=== PATIENT | male | born 1945 | race Caucasian/White ===

== ENCOUNTER 2018-06-02 07:08 | Inpatient (IN) | payer MEDICARE ==
[~2018-06-02] VITALS: Ht 165.1 cm; Wt 70.2 kg
[2018-06-02] VITALS (12 sets, daily range): BP systolic 106–155; BP diastolic 49–87
[~2018-06-02 07:08] MED LIST: ASPI81 PO; ATOR40TA28 PO; FAMO20 PO; LISI-660 PO; METO25 PO; MONT10TA21 PO; SODIUM CHLORIDE 0.9% 1,000 ML IV ONE
[2018-06-02 07:51] LABS: BASOPHILS % (AUTO) 0.9 % (0.0-2.0); HEMATOCRIT 39.9 % (41-53); HEMOGLOBIN 13.9 g/dL (13.5-17.5); LYMPHOCYTES # (AUTO) 2.4 K/uL (1.0-4.8); LYMPHOCYTES % (AUTO) 30.9 % (22.0-44.0); MEAN CORPUSCULAR HGB CONC 34.9 G/dL (31.0-37.0); MEAN CORPUSCULAR VOLUME 92 fL (80-100); MONOCYTES # (AUTO) 0.8 K/uL (0.1-1.0); MONOCYTES % (AUTO) 10.7 % (2.0-9.0); NEUTROPHILS # (AUTO) 4.3 K/uL (1.8-7.7); NEUTROPHILS % (AUTO) 55.5 % (40.0-70.0); PLATELET COUNT (AUTO) 227 K/uL (150-450); RED BLOOD CELL COUNT(AUTO) 4.36 MIL/uL (4.50-5.90); RED CELL DISTRIBUTION WIDTH 13.7 % (11.5-14.5)
[2018-06-02 08:02] LABS: INR 0.9 (0.9-1.1); PROTHROMBIN TIME 9.2 SEC (9.4-11.6)
[2018-06-02 08:03] LABS: ANION GAP 10 mmol/L (8-16); CALCIUM, TOTAL 8.7 mg/dL (8.8-10.5); CARBON DIOXIDE 24 mmol/L (22-29); CHLORIDE 102 mmol/L (98-107); CREATININE 1.15 mg/dL (0.60-1.30); GLOMERULAR FILTR. RATE CALC > 60 mL/min (>60); GLUCOSE,RANDOM 94 mg/dL (70-110); POTASSIUM 4.5 mmol/L (3.5-5.1); SODIUM SERUM 136 mmol/L (136-145); UREA NITROGEN, BLOOD 19 mg/dL (7-18)
[2018-06-02] MEDS ORDERED: LIDOCAINE HCL/PF 1% 30 ML VIAL ONE (08:51)
[2018-06-02] MEDS ORDERED: IOHEXOL 300 MG/ML 150 ML VIAL ONE (08:51)
[2018-06-02] MEDS ORDERED: SODIUM BICARBONATE 50 MEQ/50 ML VIAL ONE (08:51)
[2018-06-02] MEDS ORDERED: HEPARIN SODIUM 1000 UNITS/NS 1,000 ML ONE (08:51)
[2018-06-02] MEDS ORDERED: PHENYLEPHRINE 200 MG/D5%-WATER 250 ML IV ONE (09:30)
[2018-06-02] MEDS ORDERED: LIDOCAINE 1% 30 ML/SOD BICARB 8.4% 4 ML SQ ONE (09:36)
[2018-06-02] MEDS ORDERED: FentaNYL CITRATE-PF 100 MCG/2 ML VIAL ONE (09:36)
[2018-06-02] MEDS ORDERED: HEPARIN SODIUM,PORCINE 1,000 UNITS/ML 10 ML VIAL ONE (09:37)
[2018-06-02] MEDS ORDERED: NITROGLYCERIN 50 MG/D5% WATER 250 ML ONE (09:37)
[2018-06-02] MEDS ORDERED: MIDAZOLAM HCL 2 MG/2 ML VIAL ONE (09:37)
[2018-06-02] MEDS ORDERED: HEPARIN SODIUM 1000 UNITS/NS 500 ML IARTER ONE (09:37)
[2018-06-02] MEDS ORDERED: HEPARIN SODIUM 2,000 UNITS in HEPARIN SODIUM 1000 UNITS/NS 1,000 ML IARTER ONE (09:37)
[2018-06-02] MEDS ORDERED: VERAPAMIL HCL 2.5 MG/ML 2 ML VIAL ONE (09:37)
[2018-06-02] MEDS ORDERED: IOHEXOL 300 MG/ML 150 ML VIAL IARTER ONE (09:42)
[2018-06-02] MEDS ORDERED: IOHEXOL 300 MG/ML 100 ML VIAL IARTER ONE ×2 (09:42)
[2018-06-02] MEDS ORDERED: IOHEXOL 300 MG/ML 100 ML VIAL ONE ×2 (09:56→10:30)
[2018-06-02] MEDS ORDERED: HEPARIN SODIUM,PORCINE 5,000 UNITS/ML VIAL IVP ONE (10:01)
[2018-06-02] MEDS ORDERED: TICAGRELOR 90 MG TABLET PO ONE (10:01)
[2018-06-02] MEDS ORDERED: ASPIRIN 325 MG TABLET PO ONE (10:01)
[2018-06-02] MEDS ORDERED: TICAGRELOR 90 MG TABLET ONE (10:01)
[2018-06-02] MEDS ORDERED: ASPIRIN 325 MG TABLET ONE (10:01)
[2018-06-02] MEDS ORDERED: NITROGLYCERIN/D5W 50 MG/250 ML IV BOTTLE ICOR ONE (10:06)
[2018-06-02] MEDS ORDERED: VERAPAMIL HCL 2.5 MG/ML 2 ML VIAL ICOR ONE (10:06)
[2018-06-02] MEDS ORDERED: HEPARIN SODIUM 1000 UNITS/NS 0 ML ONE (10:17)
[2018-06-02] MEDS: LISINOPRIL 5 MG TABLET PO SCH (13:21)
[2018-06-02] MEDS: METOPROLOL SUCCINATE 50 MG ER TABLET PO SCH (13:22)
[2018-06-02] MEDS ORDERED: PNEUMOCOCCAL VACCINE POLYVALENT 0.5 ML VIAL [PPSV23] IM ONE (15:15)
[2018-06-02] MEDS: TICAGRELOR 90 MG TABLET PO SCH (20:03)
[2018-06-02] MEDS ORDERED: ATORVASTATIN CALCIUM 40 MG TABLET PO SCH (21:00)
[2018-06-03] VITALS: BP 102/48
[2018-06-03 04:00] VITALS: BP 97/48
[2018-06-03 05:37] LABS: BASOPHILS % (AUTO) 0.4 % (0.0-2.0); EOSINOPHILS % (AUTO) 1.4 % (1.0-6.0); HEMATOCRIT 39.1 % (41-53); HEMOGLOBIN 13.6 g/dL (13.5-17.5); LYMPHOCYTES % (AUTO) 19.3 % (22.0-44.0); MEAN CORPUSCULAR HEMOGLOBIN 31.9 pg (26.0-34.0); MEAN CORPUSCULAR HGB CONC 34.8 G/dL (31.0-37.0); MEAN CORPUSCULAR VOLUME 92 fL (80-100); MONOCYTES % (AUTO) 9.1 % (2.0-9.0); NEUTROPHILS # (AUTO) 7.4 K/uL (1.8-7.7); NEUTROPHILS % (AUTO) 69.8 % (40.0-70.0); PLATELET COUNT (AUTO) 232 K/uL (150-450); RED BLOOD CELL COUNT(AUTO) 4.28 MIL/uL (4.50-5.90); RED CELL DISTRIBUTION WIDTH 13.8 % (11.5-14.5)
[2018-06-03 06:13] LABS: ALANINE AMINOTRANSFERASE 31 U/L (12-78); ALBUMIN 3.4 g/dL (3.4-5.0); ALKALINE PHOSPHATASE 57 U/L (46-116); ANION GAP 7 mmol/L (8-16); ASPARTATE AMINOTRANSFERASE 19 U/L (15-37); BILIRUBIN,TOTAL 0.6 mg/dL (0.1-1.0); CALCIUM, TOTAL 8.4 mg/dL (8.8-10.5); CARBON DIOXIDE 24 mmol/L (22-29); CHLORIDE 102 mmol/L (98-107); CREATINE KINASE, TOTAL 91 U/L (39-308); CREATININE 1.22 mg/dL (0.60-1.30); GLOMERULAR FILTR. RATE CALC 59 mL/min (>60); GLUCOSE,RANDOM 106 mg/dL (70-110); POTASSIUM 4.7 mmol/L (3.5-5.1); SODIUM SERUM 133 mmol/L (136-145); TOTAL PROTEIN, SERUM 6.8 g/dL (6.4-8.2); UREA NITROGEN, BLOOD 20 mg/dL (7-18)
[2018-06-03 08:00] VITALS: BP 117/60
[2018-06-03] MEDS: METOPROLOL SUCCINATE 50 MG ER TABLET PO SCH (09:00)
[2018-06-03] MEDS ORDERED: ASPIRIN 81 MG CHEWABLE TABLET PO SCH (09:00)
[2018-06-03] MEDS: TICAGRELOR 90 MG TABLET PO SCH (09:23)
[2018-06-03] MEDS: LISINOPRIL 5 MG TABLET PO SCH (09:23)
[2018-06-03] MEDS ORDERED: TICA90TA PO (11:01)
[2018-06-03] MEDS ORDERED: LISI-622 PO (11:02)
[2018-06-03] MEDS ORDERED: ASPI-1182 PO (11:04)
[2018-06-03] MEDS ORDERED: METOPROLOL SUCCINATE 50 MG ER TABLET PO SCH (11:30)
== END 2018-06-03 12:00 | disposition home or self-care (01) | DRG 246 ==
LOC: CATHLAB 07:08 → ICU 07:09
PROVIDERS: ADMIT Internal Medicine Cardiovascular Disease; ATTEND Internal Medicine Cardiovascular Disease
PROC: 027137Z Dilation of Coronary Artery, Two Arteries with Four or More Drug-eluting Intraluminal Devices, Percutaneous Approach (ICD-10-PCS; principal; 2018-06-02)
PROC: 4A023N7 Measurement of Cardiac Sampling and Pressure, Left Heart, Percutaneous Approach (ICD-10-PCS; 2018-06-02)
PROC: B2111ZZ Fluoroscopy of Multiple Coronary Arteries using Low Osmolar Contrast (ICD-10-PCS; 2018-06-02)
PROC: B2151ZZ Fluoroscopy of Left Heart using Low Osmolar Contrast (ICD-10-PCS; 2018-06-02)
PROC: 3E0234Z Introduction of Serum, Toxoid and Vaccine into Muscle, Percutaneous Approach (ICD-10-PCS; 2018-06-02)
DX: I25.10 Atherosclerotic heart disease of native coronary artery without angina pectoris (principal); E78.5 Hyperlipidemia, unspecified; I10 Essential (primary) hypertension; Z23 Encounter for immunization
CPT/HCPCS: 87081; 90471; 92920; 92921; 92928; 92929; 93005; J1644; J2250; J2370; J3010; J3490; J7030; Q9967

== ENCOUNTER 2018-07-05 09:42 | Emergency (ER) | payer MEDICARE ==
[~2018-07-05] VITALS: Ht 172.7 cm; Wt 75.0 kg
[~2018-07-05 09:42] MED LIST changes: +ASPI-1182 PO; -ASPI81 PO; -SODIUM CHLORIDE 0.9% 1,000 ML IV ONE; +TICA90TA PO
[2018-07-05] MEDS ORDERED: NITR.4P TD (10:03)
[2018-07-05] MEDS ORDERED: FLUT16H NASAL (10:03)
[2018-07-05] MEDS ORDERED: SODIUM CHLORIDE 0.9% 250 ML IRRIG SOLUTION BOTTLE IRRIG ONE (10:30)
[2018-07-05] MEDS ORDERED: PERTUSS(ACELL),DIPH,TET VAC/PF 0.5 ML VIAL IM ONE (10:30)
[2018-07-05] MEDS ORDERED: LIDOCAINE/PF 1% 5 ML VIAL INJ ONE (10:30)
[2018-07-05] MEDS ORDERED: HYDROCODONE/ACETAMINOPHEN 5-325 MG TABLET PO ONE (10:30)
[2018-07-05] MEDS ORDERED: AMOX TR/POT CLAV 875 MG/125 MG TABLET PO ONE (10:45)
[2018-07-05 11:58] VITALS: BP 153/93
== END 2018-07-05 12:25 | disposition home or self-care (01) ==
LOC: EMS 09:43
DX: S51.852A Open bite of left forearm, initial encounter (principal); S81.852A Open bite, left lower leg, initial encounter; S90.511A Abrasion, right ankle, initial encounter; J45.909 Unspecified asthma, uncomplicated; E78.00 Pure hypercholesterolemia, unspecified; I10 Essential (primary) hypertension; Z91.048 Other nonmedicinal substance allergy status; Z79.82 Long term (current) use of aspirin; Z79.899 Other long term (current) drug therapy; Z98.890 Other specified postprocedural states; W54.0XXA Bitten by dog, initial encounter; Y93.89 Activity, other specified; Y92.89 Other specified places as the place of occurrence of the external cause; Y99.8 Other external cause status
CPT/HCPCS: 12002; 73090; 90471; 90715; 99284; J3490

== ENCOUNTER 2019-11-20 11:56 | Emergency (ER) | payer MEDICARE, OTHER ==
[~2019-11-20] VITALS: Ht 167.6 cm; Wt 79.0 kg
[~2019-11-20 11:56] MED LIST changes: +ASPI-1111 PO; -ASPI-1182 PO; +FLUT16H NASAL; +NITR.4P TD
[2019-11-20] MEDS ORDERED: ROSU20TA23 PO (12:23)
[2019-11-20] MEDS ORDERED: CLOP75TA3 PO (12:23)
[2019-11-20] MEDS ORDERED: OMEP20 PO (12:23)
[2019-11-20 12:39] LABS: BASOPHILS % (AUTO) 0.9 % (0.0-2.0); EOSINOPHILS % (AUTO) 2.7 % (1.0-6.0); HEMATOCRIT 37.9 % (41-53); HEMOGLOBIN 13.1 g/dL (13.5-17.5); LYMPHOCYTES # (AUTO) 1.3 K/uL (1.0-4.8); LYMPHOCYTES % (AUTO) 21.8 % (22.0-44.0); MEAN CORPUSCULAR HEMOGLOBIN 30.8 pg (26.0-34.0); MEAN CORPUSCULAR HGB CONC 34.5 G/dL (31.0-37.0); MEAN CORPUSCULAR VOLUME 89 fL (80-100); MONOCYTES # (AUTO) 0.8 K/uL (0.1-1.0); MONOCYTES % (AUTO) 12.4 % (2.0-9.0); NEUTROPHILS # (AUTO) 3.8 K/uL (1.8-7.7); NEUTROPHILS % (AUTO) 62.2 % (40.0-70.0); PLATELET COUNT (AUTO) 209 K/uL (150-450); RED BLOOD CELL COUNT(AUTO) 4.24 MIL/uL (4.50-5.90); RED CELL DISTRIBUTION WIDTH 13.2 % (11.5-14.5)
[2019-11-20 12:47] LABS: ANION GAP 11 mmol/L (8-16); CALCIUM, TOTAL 8.4 mg/dL (8.8-10.5); CARBON DIOXIDE 23 mmol/L (22-29); CHLORIDE 100 mmol/L (98-107); CREATININE 0.82 mg/dL (0.60-1.30); GLUCOSE,RANDOM 92 mg/dL (70-110); POTASSIUM 4.2 mmol/L (3.5-5.1); SODIUM SERUM 134 mmol/L (136-145); UREA NITROGEN, BLOOD 12 mg/dL (7-18)
[2019-11-20 12:48] LABS: GLOMERULAR FILTR. RATE CALC > 60 mL/min (>60)
[2019-11-20 12:52] LABS: PROTHROMBIN TIME 9.8 SEC (9.4-11.6)
[2019-11-20 12:58] LABS: B-TYPE NATRIURETIC PEPTIDE 19 pg/mL (0-100)
[2019-11-20 13:12] LABS: ALANINE AMINOTRANSFERASE 27 U/L (12-78); ALBUMIN 3.9 g/dL (3.4-5.0); ALKALINE PHOSPHATASE 62 U/L (46-116); ASPARTATE AMINOTRANSFERASE 25 U/L (15-37); BILIRUBIN,TOTAL 0.9 mg/dL (0.1-1.0); CREATINE KINASE, TOTAL ONLY 155 U/L (39-308)
[2019-11-20 14:00] VITALS: BP 118/79
[2019-11-20] MEDS ORDERED: MECLIZINE HCL 25 MG TABLET PO ONE (14:00)
== END 2019-11-20 14:42 | disposition home or self-care (01) ==
LOC: EMS 12:04
DX: H81.399 Other peripheral vertigo, unspecified ear (principal); J45.909 Unspecified asthma, uncomplicated; E78.00 Pure hypercholesterolemia, unspecified; I10 Essential (primary) hypertension; Z79.899 Other long term (current) drug therapy; Z88.8 Allergy status to other drugs, medicaments and biological substances; Z79.82 Long term (current) use of aspirin
CPT/HCPCS: 93005